=== PATIENT | female | born 1960 | race Two or more races ===

== ENCOUNTER 2025-05-23 21:40 | Inpatient (IN) | payer OTHER ==
[~2025-05-23] VITALS: Ht 165.1 cm; Wt 80.9 kg
--- NOTE | 2025-05-23 22:21 | ED.PDOC ---
HPI (NEURO) HPI Comments 65y F who presents to the ED for chief complaint of headache. Pt states she has been having on and off headaches for the past 1 week. Pt states earlier tonight, pt headache became severe and pt started to have associated shortness of breath and called EMS. EMS arrived on scene and noted very high BP prior to ED arrival. Pt in the ED, states she has history of HTN and was on medications but states after seeing functional neurologist, pt stopped taking medications and has been taking holistic medications. Pt has noted BP of 230/123 with all other vitals in normal range. Pt denies any other symptoms at this time. 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 Notes, Medications, Allergies Information Source: Patient, Emergency Med Personnel Mode of Arrival: EMS Past Medical History PAST MEDICAL HISTORY: HTN Constitutional: denies: chills, diaphoresis, fatigue, fever, malaise, sweats, weakness, others EENTM: denies: blurred vision, double vision, ear bleeding, ear discharge, ear drainage, ear pain, ear ringing, eye pain, eye redness, hearing loss, mouth pain, mouth swelling, nasal discharge, nose bleeding, nose congestion, nose pain, photophobia, tearing, throat pain, throat swelling, voice changes, others Respiratory: denies: cough, hemoptysis, orthopnea, SOB at rest, shortness of breath, SOB with excertion, stridor, wheezing, others Cardiovascular: denies: chest pain, dizzy spells, diaphoresis, Dyspnea on exertion, edema, irregular heart beat, left arm pain, lightheadedness, palpitations, PND, syncope, others Gastrointestinal: denies: abdomen distended, abdominal pain, blood streaked bowels, constipated, diarrhea, dysphagia, difficulty swallowing, hematemesis, melena, nausea, poor appetite, poor fluid intake, rectal bleeding, rectal pain, vomiting, others Genitourinary: denies: abnormal vagina bleeding, burning, dyspareunia, dysuria, flank pain, frequency, hematuria, incontinence, pain, , vagina discha rge, urgency, others Neurological: reports: headache; denies: dizziness, fainting, left sided numbness, left sided weakness, numbness, paresthesia, pre-existing deficit, right sided numbness, right sided weakness, seizure, speech problems, tingling, tremors, weakness, others Musculoskeletal: denies: back pain, gout, joint pain, joint swelling, muscle pain, muscle stiffness, neck pain, others Integumetry: denies: bruises, change in color, change in hair/nails, dryness, laceration, lesions, lumps, rash, wounds, others Allergic/Immunocompromised: denies: Difficulty Healing, Frequent Infections, Hives, Itching, others Hematologic/Lymphatic: denies: anemia, blood clots, easy bleeding, easy bruising, swollen glands, others Endocrine: denies: excessive hunger, excessive sweating, excessive thirst, excessive urination, flushing, intolerance to cold, intolerance to heat, unexplained weight gain, unexplained weight loss, others Psychiatric: denies: anxiety, bipolar disorder, depression, hopeless, panic disorder, schizophrenia, sleepless, suicidal, others All Other Systems: Reviewed and Negative Physical Exam General Appearance: No Apparent Distress, Normal HEENT: Normal ENT Inspection, Pharynx Normal, TMs Normal Neck: Full Range of Motion, Non-Tender, Normal, Normal Inspection Respiratory: Chest Non-Tender, Lungs Clear, No Accessory Muscle Use, No Respira tory Distress, Normal Breath Sounds Cardiovascular: No Edema, No JVD, No Murmur, No Gallop, Normal Peripheral Pulses, Regular Rate/Rhythm Breast Exam: Deferred Gastrointestinal: No Organomegaly, Non Tender, No Pulsatile Mass, Normal Bowel Sounds, Soft Genitalia: Deferred Pelvic: Deferred Rectal: Deferred Extremities: No calf tenderness, Normal capillary refill, Normal inspection, Normal range of motion, Non-tender, No pedal edema Musculoskeletal : Apperance: Normal Neurologic: Alert, triage specialist II-XII nml as Tested, No Motor Deficits, Normal Affect, Normal Mood, No Sensory Deficits Cerebellar Function: Normal Reflexes: Normal Skin: Dry, Normal Color, Warm Lymphatic: No Adenopathy Was a procedure done? Was a procedure done?: No Differential Diagnosis (SZ) Seizure: N/A CVA: CVA, Mass Lesion General Weakness: Dehydration, Electrolyte imbalance, Encephalopathy, TIA Headache: Migraine, Epidural Hemorrhage, Intracerebral Hemorrhage, Subarachnoid Hemorrhage, Subdural Hemorrhage, Mass Lesion, Other (HTN urgency) X-Ray, Labs, Meds, VS Vital Signs Date Time Temp Pulse Resp B/P (MAP) Pulse Ox O2 Delivery O2 Flow Rate FiO2 05/23/25 23:29 160/99 05/23/25 22:43 199/94 05/23/25 22:35 77 05/23/25 21:58 98.3 94 18 230/123 (158) 97 98.3 Lab Test 05/23/25 23:29 05/23/25 22:39 Range/Units Troponin I High Sensitivity Pending 767 *H </=34 ng/L White Blood Count 8.3 4.4-10.8 10^3/uL Red Blood Count 5.13 4.0-5.20 10^6/uL Hemoglobin 15.7 12.2-16.2 g/dL Hematocrit 44.9 36.0-46.0 % Mean Corpuscular Volume 87.6 80.0-100.0 fL Mean Corpuscular Hemoglobin 30.6 28.0-32.0 pg Mean Corpuscular Hemoglobin Concent 34.9 32.0-36.0 g/dL Red Cell Distribution Width 15.3 H 11.8-14.3 % Platelet Count 314 140-450 10^3/uL Mean Platelet Volume 9.4 6.9-10.8 fL Neutrophils (%) (Auto) 70.8 37.0-80.0 % Lymphocytes (%) (Auto) 25.6 10.0-50.0 % Monocytes (%) (Auto) 2.7 0.0-12.0 % Eosinophils (%) (Auto) 0.3 0.0-7.0 % Basophils (%) (Auto) 0.6 0.0-2.0 % Neutrophils # (Auto) 5.8 1.6-8.6 10 ^3/uL Lymphocytes # (Auto) 2.1 0.4-5.4 10 ^3/uL Monocytes # (Auto) 0.2 0-1.3 10 ^3/uL Eosinophils # (Auto) 0 0-0.8 10 ^3/uL Basophils # (Auto) 0.1 0-0.2 10 ^3/uL Nucleated Red Blood Cells 0.2 % Sodium Level 139 136-145 mmol/L Potassium Level 3.5 3.5-5.1 mmol/L Chloride Level 105 98-107 mmol/L Carbon Dioxide Level 21 20-31 mmol/L Anion Gap 13 5-15 Blood Urea Nitrogen 36 H 9-23 mg/dL Creatinine 2.30 H 0.550-1.02 mg/dL Glomerular Filtration Rate Calc 23 >90 mL/min BUN/Creatinine Ratio 15.7 10.0-20.0 Serum Glucose 135 H 74-106 mg/dL Calcium Level 9.4 8.7-10.4 mg/dL Current Medications Medications (Trade) Dose Ordered Sig/Mariella Route Start Time Stop Time Status Last Admin Clonidine HCl (Catapres Tablet) 0.1 mg ONCE ONCE PO 05/23/25 22:00 05/23/25 22:01 DC 05/23/25 22:43 Acetaminophen/ Hydrocodone Bitart ([place] 5/325MG Tab) 1 tab ONCE ONCE PO 05/23/25 22:00 05/23/25 22:01 DC 05/23/25 22:40 Ondansetron HCl (Zofran Po) 4 mg ONCE ONCE PO 05/23/25 22:45 05/23/25 22:46 DC 05/23/25 22:39 Time of 1ST Reevaluation: 23:45 Reevaluation 1ST: Improved Patient Education/Counseling: Diagnosis, Treatment, Prognosis, Need For Follow Up Family Education/Counseling: No Family Present Comments pt presented with a headache, but no chest pain. her BP is elevated but she does not check it and had no knowledge of it. she has hypertesnsive emergency with elevated troponin. her head ct is unremarkable. i will start her on labetolol drip, aspirin, heparin. she will be admitted for NSTEMI, hypertensive emergency, acute renal failure Departure 1 Departure Time of Disposition: 23:45 Impression: Primary Impression: NSTEMI (non-ST elevated myocardial infarction) Additional Impressions: Hypertensive emergency Headache Qualified Codes: R51.9 - Headache, unspecified Acute renal failure Disposition: ADMITTED INPATIENT Admit to: ICU Condition: Serious Discharged With: Self Critical Care Note Critical Care Time?: Yes (55 min-critical care time only) Critical care comment: Due to concerns for patients condition deteriorating, the care required my highest level of attention and readiness to intervene. I assessed the patient, reviewed the medical records, ordered the appropriate tests and treatments, then reassessed for results and responsiveness. I communicated with medical personnel and consultants and formulated a plan of care. Total critical care time excludes any procedures Stability Stability form required: No Heart Score Heart Score: Heart Score Response (Comments) Value History N/A 0 EKG N/A 0 Age N/A 0 Risk Factors N/A 0 Troponin N/A 0 Total 0 I personally scribed for LUIS TINSLEY MD ([facility]) on 05/23/25 at 22:21. Electronically submitted by Sanjuana Bedolla ([facility] [place]). LUIS TINSLEY MD May 23, 2025 22:21
--- NOTE | 2025-05-23 22:32 | DVH ---
CHEST RADIOGRAPH Indication: htn emergency Technique: Single frontal view of the chest was obtained Comparison: None FINDINGS: Lines and Tubes: None Lungs: No focal consolidation. Pleura: No effusion. No pneumothorax. Cardiomediastinal contours: Unremarkable Bones: No acute osseous abnormality. IMPRESSION: 1. No acute cardiopulmonary disease.
[2025-05-23] MEDS: ONDANSETRON ODT 4 MG TAB PO ONE (22:39)
[2025-05-23] MEDS: HYDROcodone-ACET 5/325MG TAB PO ONE (22:40)
--- NOTE | 2025-05-23 22:53 | ECG ---
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
[2025-05-23 22:54] LABS: Hematocrit 44.9 % (36.0-46.0); Hemoglobin 15.7 g/dL (12.2-16.2); Mean Corpuscular Hemoglobin 30.6 pg (28.0-32.0); Mean Corpuscular Volume 87.6 fL (80.0-100.0); Nucleated Red Blood Cells % 0.2 %
--- NOTE | 2025-05-23 22:55 | DVH ---
EXAM: CT HEAD WITHOUT CONTRAST INDICATION: headache TECHNIQUE: CT of the head without intravenous contrast. Radiation Dose : 1. Head: CT Dose: CTDI volume is 53.99 mGy. Dose-length product is 863.9 mGy*cm The dose indicators for CT are the volume Computed Tomography (CT) Dose Index (CTDIvol) and the Dose Length Product (DLP), and are measured in units of mGy and mGy-cm, respectively. These indicators are not patient dose, but values generated from the CT scanner acquisition factors. The report includes radiation exposure data for exposures received during this examination. COMPARISON: None FINDINGS: There is no evidence of acute intracranial hemorrhage, extra-axial collection, mass effect, midline s hift, herniation or hydrocephalus. Chronic appearing lacunar infarcts within the left thalamus and po sterior limb of the right internal capsule. The ventricles, sulci and cisterns are age appropriate. The ortiz-white differentiation is intact. Patchy periventricular and subcortical white matter hypoattenuation is nonspecific but may be related to small vessel ischemic disease. The visualized paranasal sinuses and mastoid air cells are clear. The surrounding soft tissues and osseous structures are unremarkable. IMPRESSION: 1. No acute intracranial abnormality. 2. Chronic bilateral lacunar infarcts and sequelae of microvascular disease. Radiation optimization: All CT scans at this facility use at least one of these dose optimization willian hniques: automated exposure control mA and/or kV adjustment per patient size (includes targeted exam s where dose is matched to clinical indication) or iterative reconstruction.
[2025-05-23 23:13] LABS: Chloride 105 mmol/L (98-107); Sodium 139 mmol/L (136-145)
[2025-05-23 23:14] LABS: Anion Gap 13 (5-15); Calcium 9.4 mg/dL (8.7-10.4); Carbon Dioxide 21 mmol/L (20-31)
[2025-05-23 23:15] LABS: Potassium 3.5 mmol/L (3.5-5.1)
[2025-05-23 23:19] LABS: BUN/Creatinine Ratio 15.7 (10.0-20.0)
[2025-05-23 23:20] LABS: Blood Urea Nitrogen 36 mg/dL (9-23); Glucose 135 mg/dL (74-106)
[2025-05-24 00:21] LABS: INR 1.03 (0.9-1.15); Partial Thromboplastin Time 25.7 SEC (24.5-34.5); Prothrombin Time 10.9 sec (9.3-11.8)
[2025-05-24] MEDS ORDERED: ONDANSETRON HCL 4 MG/2 ML VIAL IV PRN (01:00)
[2025-05-24] MEDS ORDERED: MORPHINE SULFATE INJ 2 MG/ml SYRG IV PRN (01:00)
[2025-05-24] MEDS: LABETALOL HCL 5 MG/ML ML 20ML VIAL IV ONE (01:00)
[2025-05-24] MEDS ORDERED: NITROGLYCERIN 0.4 MG SL TAB SL PRN (01:00)
[2025-05-24] MEDS: LABETALOL INJECTION 250 MG in SODIUM CHL 0.9% 200 ML IV ONE (01:02)
[2025-05-24] MEDS: HEPARIN SODIUM (PORCINE) 5000 UNITS/ML 1ML VIAL IV ONE ×2 (01:21→16:02)
[2025-05-24] MEDS: HEPARIN DRIP/D5W 100UNITS/ML 250 ML IV SCH ×4 (01:22→23:23)
--- NOTE | 2025-05-24 04:55 | DVHHP2 ---
History of Present Illness Reason for Visit: Headache History of Present Illness 65-year-old female presents for evaluation of a headache. Patient presents with a one-week history of intermittent episodes of headache. Patient states that today that headache was more intense and constant with associated nausea. On arrival to the emergency department patient's blood pressure was 230/123. Denies chest pain or palpitations. No other acute complaints reported. Past Medical History Hypertension Past Surgical History None Family History Noncontributory Smoke: No ALCOHOL: none Drugs: None Lives: with Family Review of Systems Review of Systems Review of systems are currently negative otherwise addressed in HPI. Allergies: Uncoded Allergies: sulfa (Allergy, Intermediate, 05/24/25) Medications Current Medications Medications Dose Ordered Sig/Mariella Route Start Time Stop Time Status Last Admin Dose Admin Heparin Sodium/ Dextrose 250 ml @ 8 mls/hr Q24H IV 05/24/25 00:00 05/24/25 01:22 8 MLS/HR Hydralazine HCl 10 mg Q6HP PRN IV 05/24/25 01:00 Aspirin 162 mg DAILY PO 05/24/25 10:00 Amlodipine Besylate 5 mg DAILY PO 05/24/25 10:00 Atorvastatin Calcium 10 mg HS PO 05/24/25 22:00 Ondansetron HCl 4 mg Q4HP PRN IV 05/24/25 01:00 Nitroglycerin 0.4 mg Q5MINP PRN SL 05/24/25 01:00 Morphine Sulfate 2 mg Q30M PRN IV 05/24/25 01:00 Exam Vital Signs Vital Signs Date Time Temp Pulse Resp B/P (MAP) Pulse Ox O2 Delivery O2 Flow Rate FiO2 05/24/25 04:15 69 22 153/84 (107) 100 05/23/25 22:41 98.0 98.0 05/23/25 22:00 Room Air* 0 21 Exam Gen: 65-year-old female in mild distress. Skin: Warm, dry, normal color and texture, no rash. HEENT: Normocephalic atraumatic, mucous membranes moist and pink. Neck: Cervical and supraclavicular nodes normal without enlargement, trachea is midline, thyroid gland is normal without masses. Pulmonary: Clear to auscultation and percussion bilaterally. Cardiac: Regular rate and rhythm. No murmur Abdomen: Soft, nontender, nondistended, bowel sounds present all 4 quadrants, no guarding, no rigidity, no organomegaly. Extremities: No cyanosis, clubbing, no edema Neuro: Cranial nerves II through XII grossly intact, normal affect and speech, no focal motor deficits. Labs/Xrays ORDERING PHYSICIAN: LUIS TINSLEY MD PROCEDURE(s): CXRP - CHEST PORTABLE REASON: htn emergency ORDER NUMBER(s): [id number], ACCESSION NUMBER(s): [id number] CHEST RADIOGRAPH Indication: htn emergency Technique: Single frontal view of the chest was obtained Comparison: None FINDINGS: Lines and Tubes: None Lungs: No focal consolidation. Pleura: No effusion. No pneumothorax. Cardiomediastinal contours: Unremarkable Bones: No acute osseous abnormality. IMPRESSION: 1. No acute cardiopulmonary disease. ATED BY: STEPHEN ARAGON Jr., DO DICTATED DATE/TIME: 05/23/252228 ORDERING PHYSICIAN: LUIS TINSLEY MD PROCEDURE(s): HWOCT - HEAD WITHOUT CONTRAST REASON: headache ORDER NUMBER(s): [id number], ACCESSION NUMBER(s): [id number] EXAM: CT HEAD WITHOUT CONTRAST INDICATION: headache TECHNIQUE: CT of the head without intravenous contrast. Radiation Dose : 1. Head: CT Dose: CTDI volume is 53.99 mGy. Dose-length product is 863.9 mGy*cm The dose indicators for CT are the volume Computed Tomography (CT) Dose Index (CTDIvol) and the Dose Length Product (DLP), and are measured in units of mGy and mGy-cm, respectively. These indicators are not patient dose, but values generated from the CT scanner acquisition factors. The report includes radiation exposure data for exposures received during this examination. COMPARISON: None FINDINGS: There is no evidence of acute intracranial hemorrhage, extra-axial collection, mass effect, midline shift, herniation or hydrocephalus. Chronic appearing lacunar infarcts within the left thalamus and posterior limb of the right internal capsule. The ventricles, sulci and cisterns are age appropriate. The ortiz-white differentiation is intact. Patchy periventricular and subcortical white matter hypoattenuation is nonspecific but may be related to small vessel ischemic disease. The visualized paranasal sinuses and mastoid air cells are clear. The surrounding soft tissues and osseous structures are unremarkable. IMPRESSION: 1. No acute intracranial abnormality. 2. Chronic bilateral lacunar infarcts and sequelae of microvascular disease. Radiation optimization: All CT scans at this facility use at least one of these dose optimization techniques: automated exposure control mA and/or kV adjustmen t per patient size (includes targeted exams where dose is matched to clinical indication) or iterative reconstruction. Labs Test 05/24/25 01:49 05/23/25 23:39 05/23/25 22:39 Range/Units Troponin I High Sensitivity 748 *H </=34 ng/L Prothrombin Time 10.9 9.3-11.8 sec Prothrombin Time INR 1.03 0.9-1.15 Activated Partial Thromboplast Time 25.7 24.5-34.5 SEC White Blood Count 8.3 4.4-10.8 10^3/uL Red Blood Count 5.13 4.0-5.20 10^6/uL Hemoglobin 15.7 12.2-16.2 g/dL Hematocrit 44.9 36.0-46.0 % Mean Corpuscular Volume 87.6 80.0-100.0 fL Mean Corpuscular Hemoglobin 30.6 28.0-32.0 pg Mean Corpuscular Hemoglobin Concent 34.9 32.0-36.0 g/dL Red Cell Distribution Width 15.3 H 11.8-14.3 % Platelet Count 314 140-450 10^3/uL Mean Platelet Volume 9.4 6.9-10.8 fL Neutrophils (%) (Auto) 70.8 37.0-80.0 % Lymphocytes (%) (Auto) 25.6 10.0-50.0 % Monocytes (%) (Auto) 2.7 0.0-12.0 % Eosinophils (%) (Auto) 0.3 0.0-7.0 % Basophils (%) (Auto) 0.6 0.0-2.0 % Neutrophils # (Auto) 5.8 1.6-8.6 10 ^3/uL Lymphocytes # (Auto) 2.1 0.4-5.4 10 ^3/uL Monocytes # (Auto) 0.2 0-1.3 10 ^3/uL Eosinophils # (Auto) 0 0-0.8 10 ^3/uL Basophils # (Auto) 0.1 0-0.2 10 ^3/uL Nucleated Red Blood Cells 0.2 % Sodium Level 139 136-145 mmol/L Potassium Level 3.5 3.5-5.1 mmol/L Chloride Level 105 98-107 mmol/L Carbon Dioxide Level 21 20-31 mmol/L Anion Gap 13 5-15 Blood Urea Nitrogen 36 H 9-23 mg/dL Creatinine 2.30 H 0.550-1.02 mg/dL Glomerular Filtration Rate Calc 23 >90 mL/min BUN/Creatinine Ratio 15.7 10.0-20.0 Serum Glucose 135 H 74-106 mg/dL Calcium Level 9.4 8.7-10.4 mg/dL Assessment/Plan Assessment/Plan Assessment NSTEMI Hypertensive emergency Acute renal failure Plan Admit the patient to ICU to the hospitalist Continue labetalol drip As needed antihypertensives Resume home medications Cardiology consult Nephrology consult Continue treatment per orders Total critical care time excluding procedures performed this 55 minutes. Plan discussed with: Patient My Orders Orders - KERI ARROYO Procedure Category Date Status Time Hydralazine Injection PHA 05/24/25 In Process (Apresoline Inject 01:00 Aspirin Tablet PHA 05/24/25 In Process 10:00 Amlodipine Tablet PHA 05/24/25 In Process (Norvasc Tablet) 10:00 Atorvastatin (Lipitor) PHA 05/24/25 In Process 22:00 * Cardiology Consult CONS 05/24/25 Transmitted 00:48 *[facility] CONS 05/24/25 Transmitted -[place] 00:48 Basic Metabolic Panel LAB 05/25/25 Verified 04:00 Admit ADMIT 05/24/25 Transmitted 00:48 Renal DIET 05/24/25 Transmitted Standard(2gna,3gk,Lopho) Breakfast Ondansetron Hcl PHA 05/24/25 In Process (Zofran) 01:00 Complete Blood Count LAB 05/25/25 Verified 04:00 Comprehensive LAB 05/25/25 Verified Metabolic Panel 04:00 Echo 2d Mode Cardiac US 05/24/25 Logged DOP 00:48 Condition: Critical JULIO 05/24/25 In Process 00:48 Bedrest With Bathroom JULIO 05/24/25 In Process Privileg 00:48 Nitroglycerin PHA 05/24/25 In Process Sublingual (Ntrostat 01:00 Morphine Sulfate PHA 05/24/25 In Process Injection 01:00 Notify Of Changes [facility] 05/24/25 In Process From Base 00:48 Fulfillment Representative For [facility] 05/24/25 In Process 24 Hours 00:48 Emergency Dysrhythmia [facility] 05/24/25 In Process Protocol 00:48 Rhythm Strips Once [facility] 05/24/25 In Process Every Shift 00:48 Oxygen By Nasal RT 05/24/25 Transmitted Cannula 00:48 Date of Service: May 23, 2025 Billing Provider: KERI ARROYO Common Visit Codes: 43880-EQFROCPT CARE 30-74 MIN KERI ARROYO May 24, 2025 04:55
--- NOTE | 2025-05-24 07:18 | ECG ---
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
[2025-05-24 07:41] VITALS: PULSE 74; RESP 16; O2SAT 99
[2025-05-24 08:02] LABS: HDL Cholesterol 56 mg/dL (40-59); INR 1.08 (0.9-1.15); Partial Thromboplastin Time 44.7 SEC (24.5-34.5); Prothrombin Time 11.4 sec (9.3-11.8)
[2025-05-24 08:06] LABS: Cholesterol 293 mg/dL (< 200); Triglycerides 165 mg/dL (< 150)
--- NOTE | 2025-05-24 08:41 | CONS ---
Pharmacy Clinical Information: HEPARIN DRIP RATE TO BE INCREASED FROM 800 UNITS/HR TO 1000 UNITS/HR PER APTT OF 44.7 (SUBTHERAPEUTIC) NEXT APTT DRAW SCHEDULED FOR 1430 PER RX PROTOCOL CONFIRMED WITH RN POOJA MOODY PHARMACIST May 24, 2025 08:41
[2025-05-24 08:49] LABS: Chloride 106 mmol/L (98-107); Potassium 3.7 mmol/L (3.5-5.1); Sodium 140 mmol/L (136-145)
[2025-05-24 08:50] LABS: Anion Gap 13 (5-15); Carbon Dioxide 21 mmol/L (20-31)
[2025-05-24 08:51] LABS: Calcium 9.0 mg/dL (8.7-10.4)
[2025-05-24 08:56] LABS: BUN/Creatinine Ratio 15.9 (10.0-20.0); Blood Urea Nitrogen 36 mg/dL (9-23); Glucose 133 mg/dL (74-106)
--- NOTE | 2025-05-24 10:05 | DVHCONRES ---
Date Seen: May 24, 2025 Resident Creating Document: TG CARVER RESIDENT Referring Physician Rodo OLIVER History of Present Illness This is a 65-year-old female with past medical history of hypertension, gout who presented to the ER with a chief complaint of generalized weakness, shortness of breaths and headache for a day. Patient is A&O x3 and reports that her blood pressure was high and she was feeling generalized fatigue, malaise, shortness of breaths on exertion and on rest and severe headache for which she decided to come into the ER. Patient does not take any medications at home. She follows integrated Medicine and takes chlorine dioxide DMSO 1-2 times daily for blood pressure control. She eats diet rich in red meat including rib eyes, but denies eating any vegetables especially with oxalates. Associated symptoms include chills, nausea, diarrhea for 1 day, 3 times, nonbloody, reports increasing urine output, but denies cough, chest pain, fever. Patient stays that she does not believe in Western medicine in his done research and does not want any statin/Coreg/or any vaccines. Says that last blood draw was more than 2 years back. Patient seen and examined in the ER. Blood pressure is 150/80 mmHg. Started nifedipine 60 mg daily. Past Medical History Hypertension, gout Past Surgical History Unremarkable Allergies: Uncoded Allergies: sulfa (Allergy, Intermediate, 05/24/25) Current Medications Current Medications Medications (Trade) Dose Ordered Sig/Mariella Route PRN Reason Start Time Stop Time Status Last Admin Heparin Sodium/ Dextrose 250 ml @ 8 mls/hr Q24H IV 05/24/25 00:00 05/24/25 08:37 DC 05/24/25 01:22 Hydralazine HCl (Apresoline Injection) 10 mg Q6HP PRN IV SBP>150 05/24/25 01:00 Aspirin 162 mg DAILY PO 05/24/25 10:00 Amlodipine Besylate (Norvasc Tablet) 5 mg DAILY PO 05/24/25 10:00 05/24/25 04:53 DC Atorvastatin Calcium (Lipitor) 10 mg HS PO 05/24/25 22:00 Ondansetron HCl (Zofran) 4 mg Q4HP PRN IV NAUSEA / VOMITING 05/24/25 01:00 Nitroglycerin (Ntrostat Sublingual) 0.4 mg Q5MINP PRN SL FOR CHEST PAIN 05/24/25 01:00 Morphine Sulfate 2 mg Q30M PRN IV FOR CHEST PAIN 05/24/25 01:00 Amlodipine Besylate (Norvasc Tablet) 10 mg DAILY PO 05/24/25 05:00 05/24/25 05:16 Heparin Sodium/ Dextrose 250 ml @ 10 mls/hr Q24H IV 05/24/25 08:38 05/24/25 08:38 Review of Systems Eyes: No Pain, No Vision change, No Conjunctivae inflammation, No Eyelid inflammation, No Other, No Redness. Reports headache ENT: No Ear pain, No Ear discharge, No Nose pain, No Nose discharge, No Nose congestion, No Mouth pain, No Mouth swelling, No Throat pain, No Throat swelling, No Other Cardiovascular: No Chest Pain, No Palpitations, No Orthopnea, No PND, No Edema, No Lt Headedness, No Other Respiratory: No Cough, No Dry, No Shortness of breath, No SOB with exertion, No Wheezing, No Hemoptysis, No Pleuritic Pain, No Sputum, No Other Gastrointestinal: Reports nausea, diarrhea. No Vomiting, No Abdominal Pain, Constipation, No Melena, No Hematochezia, No Other Genitourinary: Reports urinary frequency No Dysuria, No Incontinence, No Hematuria, No Retention, No Other Musculoskeletal: No other, No neck pain, No shoulder pain, No arm pain, No back pain, No hand pain, No leg pain, No foot pain Skin: No Rash, No Lesions, No Jaundice, No Bruising, No Other Vital Signs Vital Signs Date Time Temp Pulse Resp B/P (MAP) Pulse Ox O2 Delivery O2 Flow Rate FiO2 05/24/25 09:15 76 16 109/85 (93) 99 05/24/25 08:00 97.8 97.8 05/24/25 07:41 Nasal Cannula* 2 28 Physical Exam Patient lying in bed, in no acute distress, reports chills General: Well-built, afebrile, palor, mucosae are moist Cardiovascular: Regular S1 and S2. No murmurs, gallops or rubs. No JVD elevation. No pedal edema Respiratory: Normal B/L air entry on room air. Clear lung sounds on auscultation Abdomen: Soft, nontender, nondistended, normoactive bowel sounds, no rebound tenderness, no organomegaly, no masses Genitourinary: Deferred MSK/skin: Mobilizes 4 limbs. Skin is dry and warm Neurological: No motor, no sensitive deficits, normal speech. Pupils are isocoric and reactive. Psych/Mental Status: A/Ox3 Labs/Diagnostic Data Labs Test 05/24/25 07:29 05/24/25 01:49 05/23/25 22:39 Range/Units Prothrombin Time 11.4 9.3-11.8 sec Prothrombin Time INR 1.08 0.9-1.15 Activated Partial Thromboplast Time 44.7 H 24.5-34.5 SEC Sodium Level 140 136-145 mmol/L Potassium Level 3.7 3.5-5.1 mmol/L Chloride Level 106 98-107 mmol/L Carbon Dioxide Level 21 20-31 mmol/L Anion Gap 13 5-15 Blood Urea Nitrogen 36 H 9-23 mg/dL Creatinine 2.27 H 0.550-1.02 mg/dL Glomerular Filtration Rate Calc 24 >90 mL/min BUN/Creatinine Ratio 15.9 10.0-20.0 Serum Glucose 133 H 74-106 mg/dL Calcium Level 9.0 8.7-10.4 mg/dL Triglycerides Level 165 H < 150 mg/dL Cholesterol Level 293 H < 200 mg/dL LDL Cholesterol 221 H < 100 mg/dL HDL Cholesterol 56 40-59 mg/dL Thyroid Stimulating Hormone (TSH) 1.63 0.55-4.78 uIU/mL Troponin I High Sensitivity 748 *H </=34 ng/L White Blood Count 8.3 4.4-10.8 10^3/uL Red Blood Count 5.13 4.0-5.20 10^6/uL Hemoglobin 15.7 12.2-16.2 g/dL Hematocrit 44.9 36.0-46.0 % Mean Corpuscular Volume 87.6 80.0-100.0 fL Mean Corpuscular Hemoglobin 30.6 28.0-32.0 pg Mean Corpuscular Hemoglobin Concent 34.9 32.0-36.0 g/dL Red Cell Distribution Width 15.3 H 11.8-14.3 % Platelet Count 314 140-450 10^3/uL Mean Platelet Volume 9.4 6.9-10.8 fL Neutrophils (%) (Auto) 70.8 37.0-80.0 % Lymphocytes (%) (Auto) 25.6 10.0-50.0 % Monocytes (%) (Auto) 2.7 0.0-12.0 % Eosinophils (%) (Auto) 0.3 0.0-7.0 % Basophils (%) (Auto) 0.6 0.0-2.0 % Neutrophils # (Auto) 5.8 1.6-8.6 10 ^3/uL Lymphocytes # (Auto) 2.1 0.4-5.4 10 ^3/uL Monocytes # (Auto) 0.2 0-1.3 10 ^3/uL Eosinophils # (Auto) 0 0-0.8 10 ^3/uL Basophils # (Auto) 0.1 0-0.2 10 ^3/uL Nucleated Red Blood Cells 0.2 % Assessment Acute kidney injury secondary to hypertensive nephropathy likely superimposed on CKD Hypertensive nephrosclerosis Hypertensive crisis NSTEMI Dyslipidemia Prior bilateral lacunar infarcts History of gout Medication noncompliance CT scan head shows chronic bilateral lacunar infarct Chest x-ray unremarkable Renal ultrasound showed Echogenic bilateral kidneys suggestive of chronic medical renal disease. Suggestion of possible mild right hydronephrosis. Plan: Discontinued labetalol IV drip Patient is on heparin drip Started nifedipine 60 mg daily Follow up with the echocardiogram Recommend cardiology consultation Patient counseled extensively regarding the need of antihypertensive medications, side effects, risks and benefits We will continue to follow up Plan discussed with patient, nurse in which all questions have been answered Case discussed with Dr. Russell Plan discussed with: Patient, Other (nurse) ADDENDUM ADDENDUM Patient is seen and examined in the ER with resident at bedside. Brief summary 65-year-old female past medical history of hypertension who practices alternative medicine has not been taking any pharmaceutical medications for high blood pressure presents to the hospital complaining of headache was admitted in the ER due to hypertensive emergency. Patient was started on a drip overnight for blood pressure control and was noted to have elevated troponins currently on heparin drip concern of non ST elevated myocardial infarction. After extensive discussion with the patient there is unclear background of previous lab results confirming elevated creatinine. However lab tests support chronic disease, patient also has chronic lacunar infarcts on CT of the head which are likely related to chronic hypertension that is not optimally controlled. Ultrasound of the kidney shows echogenic kidneys which is typical for a chronic disease process and she is not diabetic. I recommend strongly encouraged patient to start oral pharmaceutical antihypertensives, currently she is receiving an echocardiogram and cardiac evaluation Recommend obtaining outpatient records for baseline kidney function however I suspect that patient has chronic kidney disease Total care time spent 75 minutes TG CARVER May 24, 2025 10:05 ALESIA RUSSELL MD May 24, 2025 16:37
--- NOTE | 2025-05-24 11:18 | DVH ---
INDICATION: akji vs ckd TECHNIQUE: Multiple real-time sonographic images of the kidneys and bladder were obtained. COMPARISON: None FINDINGS: The right kidney measures 12 cm in length, which is normal in size. There is increased echo genicity of the right kidney. Suggestive of possible mild right hydronephrosis. The left kidney measures 12 cm in length, which is normal in size. There is increased echogenicity of the left kidney. No hydronephrosis. No large intraluminal masses are seen in the bladder. Prior to voiding the bladder volume measures vo lume 15 cc. IMPRESSION: Echogenic bilateral kidneys suggestive of chronic medical renal disease. Suggestion of possible mild right hydronephrosis.
[2025-05-24 15:10] LABS: INR 1.07 (0.9-1.15); Partial Thromboplastin Time 34.4 SEC (24.5-34.5); Prothrombin Time 11.3 sec (9.3-11.8)
[2025-05-24] MEDS ORDERED: HEPARIN DRIP/D5W 100UNITS/ML 250 ML IV SCH (15:55)
--- NOTE | 2025-05-24 15:55 | CONS ---
Pharmacy Clinical Information: APTT = 34.4 CONFIRMED WITH ALE ORTIZ THAT HEPARIN WAS RUNNING AT 1000 UNITS/HR ON A PRIMARY LINE. BOLUS 5000 UNITS HEPARIN IV, THEN INCREASE HEPARIN DRIP RATE TO 1300 UNITS/HR NEXT APTT DRAW SCHEDULED FOR 2200 PER RX PROTOCOL POOJA DENTON PHARMACIST May 24, 2025 15:55
--- NOTE | 2025-05-24 15:57 | DVHPN2 ---
Subjective Headaches have improved Reviewed: H&P, Labs Changes from previous H/P or p: No Changes Objective Vitals Vital Signs Date Time Temp Pulse Resp B/P (MAP) Pulse Ox O2 Delivery O2 Flow Rate FiO2 05/24/25 14:35 142/65 05/24/25 12:47 83 05/24/25 12:30 12 99 05/24/25 12:00 98.2 98.2 05/24/25 07:41 Nasal Cannula* 2 28 General Appearance: Alert, Oriented X3 HEENT: Atraumatic Lungs: Clear to auscultation Cardiovascular: Regular rate, Normal S1, Normal S2 Abdomen: Normal bowel sounds Medications Current Medications Medications Dose Ordered Sig/Mariella Route Start Time Stop Time Status Last Admin Dose Admin Hydralazine HCl 10 mg Q6HP PRN IV 05/24/25 01:00 Aspirin 162 mg DAILY PO 05/24/25 10:00 05/24/25 10:13 162 MG Atorvastatin Calcium 10 mg HS PO 05/24/25 22:00 Ondansetron HCl 4 mg Q4HP PRN IV 05/24/25 01:00 Nitroglycerin 0.4 mg Q5MINP PRN SL 05/24/25 01:00 Morphine Sulfate 2 mg Q30M PRN IV 05/24/25 01:00 Amlodipine Besylate 10 mg DAILY PO 05/24/25 05:00 05/24/25 05:16 10 MG Acetaminophen 650 mg Q6HP PRN PO 05/24/25 12:30 Nifedipine 60 mg DAILY PO 05/25/25 10:00 Heparin Sodium/ Dextrose 250 ml @ 13 mls/hr [id number] IV 05/24/25 16:00 Laboratory Results Laboratory Tests 05/23/25 22:39 05/24/25 07:29 Chemistry Test 05/23/25 22:39 05/24/25 07:29 Calcium Level 9.4 mg/dL (8.7-10.4) 9.0 mg/dL (8.7-10.4) Magnesium Level 2.5 mg/dL (1.6-2.6) Coagulation Test 05/23/25 23:39 05/24/25 07:29 05/24/25 14:25 Prothrombin Time 10.9 sec (9.3-11.8) 11.4 sec (9.3-11.8) 11.3 sec (9.3-11.8) Prothrombin Time INR 1.03 (0.9-1.15) 1.08 (0.9-1.15) 1.07 (0.9-1.15) Activated Partial Thromboplast Time 25.7 SEC (24.5-34.5) 44.7 SEC (24.5-34.5) H 34.4 SEC (24.5-34.5) Lipid panel Test 05/24/25 07:29 Cholesterol Level 293 mg/dL (< 200) H HDL Cholesterol 56 mg/dL (40-59) Triglycerides Level 165 mg/dL (< 150) H Cardiac Markers Test 05/24/25 07:29 B-Type Natriuretic Peptide 43.80 pg/mL (0-100) HgA1c, TSH Test 05/24/25 07:29 Hemoglobin A1c 5.7 % A1C (<5.7) Thyroid Stimulating Hormone (TSH) 1.63 uIU/mL (0.55-4.78) Assessment/Plan Assessment/Plan NSTEMI Hypertensive emergency Acute renal failure Plan Wean off labetalol Start nifedipine IV heparin drip Echo pending Cardiology consulted Renal US Plan discussed with: Patient My Orders Orders - OLIVE CHANG MD Procedure Category Date Status Time Transfer Orders XFER 05/24/25 Transmitted 12:22 Acetaminophen Tablet PHA 05/24/25 In Process (Tylenol Tablet) 12:30 Date of Service: May 24, 2025 Billing Provider: OILVE CHANG MD Common Visit Codes: [id number] INP/OBS CARE(HIGH) OLIVE CHANG MD May 24, 2025 15:57
--- NOTE | 2025-05-24 16:38 | DVHSR ---
APPROVED REPORT EXAM: Two-dimensional and M-mode echocardiogram with Doppler and color Doppler. Blood Pressure: 120/56 mmHg INDICATION EF RISK FACTORS Height: 5'5", Weight: 150 DIMENSIONS LVDd4.7 (3.8-5.7cm)LA (2D)4.5 (1.9-4.0cm)Aortic Root3.4 (2.0-3.7cm) LVDs3.5 (2.5-4.0cm)LA (MM) (1.9-4.0cm)Aortic Cusp Exc1.8 (1.5-2.0cm) EF (%) 55.0 (55-70%)Rt. Atrium3.5 (1.9-4.0cm)Asc. Aorta cm IVSd1.4 (0.7-1.1cm)RV (D) (1.8-2.4cm) PWd1.4 (0.7-1.1cm) Mitral Valve MitralMitral Stenosis E wave0.53m/sMV Mean GR.mmHg A wave1.01m/sMV Peak GR.mmHg E/A ratio0.52D MVAcm2 DECEL [id number] 1/2 Timems Aortic Valve Aortic ValveAortic Stenosis V10.89m/Ashley Mean GR.9mmHg V21.95m/Ashley Peak GR.15mmHg LVOT Diameter2.0 (1.8-2.4cm)Doppler AVA1.43cm2 Pulmonic Valve V21.18m/s Conclusion lvef 55% by visual estimate mild LVH normal rv function normal atria no severe valve abnormalities noted
[2025-05-24 17:00] VITALS: BP 167/77; PULSE 71; RESP 18; TEMP 97.6; O2SAT 98
[2025-05-24 17:03] VITALS: BP 167/77; PULSE 71; RESP 18; TEMP 97.6; O2SAT 98
--- NOTE | 2025-05-24 19:44 | DVHCONRES ---
Date Seen: May 24, 2025 Resident Creating Document: GRIFFIN ADAMS RESDIENT History of Present Illness This is a 65-year-old female with past medical history of hypertension, dyslipidemia and gout came to the hospital due to headache and generalized weakness since 1 day. She also reports of fatigue, malaise, and mild shortness of breaths. She denies fever, chest pain, cough, or any recent sick contact. Patient was previously followed by a operations and intelligence assistant ([facility]), with the patient does not believe on medication and has been following integrated Medicine. PMHx: Hypertension and gout Social history: Denies smoking, alcohol or any other drug use Home medication: Previously patient was prescribed medication for blood patient and dyslipidemia, but the patient does not take any medicine Allergic history: Sulfa drugs Patient seen and examined at the bedside. Patient is feeling better since admission and does not have any active complaint. Family History: Alcoholism Diabetes mellitus G8 FATHER Glaucoma G8 MOTHER Allergies: Uncoded Allergies: sulfa (Allergy, Intermediate, 05/24/25) Current Medications Current Medications Medications (Trade) Dose Ordered Sig/Mariella Route PRN Reason Start Time Stop Time Status Last Admin Heparin Sodium/ Dextrose 250 ml @ 8 mls/hr Q24H IV 05/24/25 00:00 05/24/25 08:37 DC 05/24/25 01:22 Hydralazine HCl (Apresoline Injection) 10 mg Q6HP PRN IV SBP>150 05/24/25 01:00 Aspirin 162 mg DAILY PO 05/24/25 10:00 05/24/25 10:13 Amlodipine Besylate (Norvasc Tablet) 5 mg DAILY PO 05/24/25 10:00 05/24/25 04:53 DC Atorvastatin Calcium (Lipitor) 10 mg HS PO 05/24/25 22:00 Ondansetron HCl (Zofran) 4 mg Q4HP PRN IV NAUSEA / VOMITING 05/24/25 01:00 Nitroglycerin (Ntrostat Sublingual) 0.4 mg Q5MINP PRN SL FOR CHEST PAIN 05/24/25 01:00 Morphine Sulfate 2 mg Q30M PRN IV FOR CHEST PAIN 05/24/25 01:00 Amlodipine Besylate (Norvasc Tablet) 10 mg DAILY PO 05/24/25 05:00 05/24/25 05:16 Heparin Sodium/ Dextrose 250 ml @ 10 mls/hr Q24H IV 05/24/25 08:38 05/24/25 15:49 DC 05/24/25 08:38 Acetaminophen (Tylenol Tablet) 650 mg Q6HP PRN PO MODERATE PAIN (4-6 PAIN SCALE) 05/24/25 12:30 Nifedipine (Procardia Xl (Time-Release)) 60 mg DAILY PO 05/25/25 10:00 Heparin Sodium/ Dextrose 250 ml @ 12 mls/hr [id number] IV 05/24/25 15:55 05/24/25 15:53 DC Heparin Sodium/ Dextrose 250 ml @ 13 mls/hr [id number] IV 05/24/25 16:00 05/24/25 16:05 Vital Signs Vital Signs Date Time Temp Pulse Resp B/P (MAP) Pulse Ox O2 Delivery O2 Flow Rate FiO2 05/24/25 17:03 97.6 71 18 167/77 (107) 98 97.6 05/24/25 17:03 Nasal Cannula* 2 28 Physical Exam General Appearance: Alert, Oriented X3, Cooperative, No acute distress HEENT: Atraumatic, PERRLA, EOMI, Mucous membrane moist/pink Respiratory: Clear to auscultation, Normal air movement Cardiovascular: Regular rate, Normal S1, Normal S2, No murmurs, no chest wall tenderness Abdominal: Normal bowel sounds, Soft, No tenderness, No hepatospenomegaly, No masses Extremities: No clubbing, No cyanosis, No edema, Normal pulses, No tenderness/swelling Skin: No rashes, No breakdown, No significant lesion Neuro: Normal gait, Normal speech, Strength at 5/5 X4 ext, Normal tone, Sensation intact, Cranial nerves 3-12 NL, Reflexes 2+ Psych/Mental Status: Mental status NL, Mood NL Labs/Diagnostic Data Labs Test 05/24/25 14:25 05/24/25 11:05 05/24/25 07:29 05/24/25 01:49 Range/Units Prothrombin Time 11.3 9.3-11.8 sec Prothrombin Time INR 1.07 0.9-1.15 Activated Partial Thromboplast Time 34.4 24.5-34.5 SEC Vitamin D 25-Hydroxy 29.2 L 30.0-100 ng/mL Vitamin B12 Level 512 211-911 pg/mL Sodium Level 140 136-145 mmol/L Potassium Level 3.7 3.5-5.1 mmol/L Chloride Level 106 98-107 mmol/L Carbon Dioxide Level 21 20-31 mmol/L Anion Gap 13 5-15 Blood Urea Nitrogen 36 H 9-23 mg/dL Creatinine 2.27 H 0.550-1.02 mg/dL Glomerular Filtration Rate Calc 24 >90 mL/min BUN/Creatinine Ratio 15.9 10.0-20.0 Serum Glucose 133 H 74-106 mg/dL Hemoglobin A1c 5.7 <5.7 % A1C Calcium Level 9.0 8.7-10.4 mg/dL Magnesium Level 2.5 1.6-2.6 mg/dL B-Type Natriuretic Peptide 43.80 0-100 pg/mL Triglycerides Level 165 H < 150 mg/dL Cholesterol Level 293 H < 200 mg/dL LDL Cholesterol 221 H < 100 mg/dL HDL Cholesterol 56 40-59 mg/dL Thyroid Stimulating Hormone (TSH) 1.63 0.55-4.78 uIU/mL Parathyroid Hormone (Intact) 225.9 H 18.4-80.1 pg/mL Troponin I High Sensitivity 748 *H </=34 ng/L Test 05/23/25 22:39 Range/Units White Blood Count 8.3 4.4-10.8 10^3/uL Red Blood Count 5.13 4.0-5.20 10^6/uL Hemoglobin 15.7 12.2-16.2 g/dL Hematocrit 44.9 36.0-46.0 % Mean Corpuscular Volume 87.6 80.0-100.0 fL Mean Corpuscular Hemoglobin 30.6 28.0-32.0 pg Mean Corpuscular Hemoglobin Concent 34.9 32.0-36.0 g/dL Red Cell Distribution Width 15.3 H 11.8-14.3 % Platelet Count 314 140-450 10^3/uL Mean Platelet Volume 9.4 6.9-10.8 fL Neutrophils (%) (Auto) 70.8 37.0-80.0 % Lymphocytes (%) (Auto) 25.6 10.0-50.0 % Monocytes (%) (Auto) 2.7 0.0-12.0 % Eosinophils (%) (Auto) 0.3 0.0-7.0 % Basophils (%) (Auto) 0.6 0.0-2.0 % Neutrophils # (Auto) 5.8 1.6-8.6 10 ^3/uL Lymphocytes # (Auto) 2.1 0.4-5.4 10 ^3/uL Monocytes # (Auto) 0.2 0-1.3 10 ^3/uL Eosinophils # (Auto) 0 0-0.8 10 ^3/uL Basophils # (Auto) 0.1 0-0.2 10 ^3/uL Nucleated Red Blood Cells 0.2 % Assessment Hypertensive emergency leading to NSTEMI NSTEMI, likely type 2 [place], likely on CKD Hypertension Dyslipidemia Medication non adherence * EKGs shows LVH with strain pattern * Trop I is raised at 700s, stable * Echo shows mild LVH with LVEF 55% with normal valves Plan/Recommendation (Case discussed with Dr. Delgado) * Single antiplatelet (Aspirin), atorvastatin, nifedipine and carvedilol * Discontinue heparin drip * In context of normal EKG, and echo, patient does not need any further cardiology workup at the moment * Keep K above 4, and Mag above 2 * We sign of the patient, may follow up with Cardiology on outpatient basis * Rest of plan, per primary team Thank you for allowing us to participate in this patient's care. Please call if you have any questions or concerns. Plan discussed with: Patient, Other (RN) GRIFFIN ADAMS May 24, 2025 19:44
[2025-05-24 20:00] VITALS: PULSE 61; PULSE 89; RESP 12; O2SAT 95
[2025-05-24] MEDS: CARVEDILOL 12.5 MG TAB PO ONE (20:49)
[2025-05-24] MEDS: ATORVASTATIN 20 MG TAB PO SCH (20:49)
[2025-05-24 21:00] VITALS: BP 147/67; PULSE 61; RESP 12; TEMP 97.1; O2SAT 95
[2025-05-24] MEDS ORDERED: ATORVASTATIN 20 MG TAB PO SCH (22:00)
[2025-05-24 22:52] LABS: INR 1.09 (0.9-1.15); Prothrombin Time 11.5 sec (9.3-11.8)
[2025-05-24 23:08] LABS: Partial Thromboplastin Time 89.7 SEC (24.5-34.5)
[2025-05-24 23:56] LABS: Urine Protein, UAD 2+ (Negative)
[2025-05-25] VITALS (10 sets, daily range): BP systolic 128–156; BP diastolic 58–79; PULSE 63–86; RESP 16–20; TEMP 97.1–98.4; O2SAT 93–98
[2025-05-25 07:46] LABS: Hematocrit 38.6 % (36.0-46.0); Hemoglobin 13.5 g/dL (12.2-16.2); Mean Corpuscular Hemoglobin 30.6 pg (28.0-32.0); Mean Corpuscular Volume 87.8 fL (80.0-100.0); Nucleated Red Blood Cells % 0.0 %
[2025-05-25 07:58] LABS: Alanine Aminotransferase 10 U/L (7-40); Albumin 4.0 g/dL (3.2-4.8); Alkaline Phosphatase 57 U/L (46-116); Anion Gap 11 (5-15); BUN/Creatinine Ratio 17.1 (10.0-20.0); Calcium 9.7 mg/dL (8.7-10.4); Carbon Dioxide 24 mmol/L (20-31); Potassium 3.7 mmol/L (3.5-5.1); Sodium 143 mmol/L (136-145); Total Protein 6.6 g/dL (5.7-8.2)
[2025-05-25 07:59] LABS: Bilirubin, Total 0.2 mg/dL (0.2-1.0); Blood Urea Nitrogen 43 mg/dL (9-23); Chloride 108 mmol/L (98-107); Glucose 119 mg/dL (74-106)
[2025-05-25 08:16] LABS: INR 1.11 (0.9-1.15); Prothrombin Time 11.6 sec (9.3-11.8)
[2025-05-25 08:34] LABS: Partial Thromboplastin Time 133.1 SEC (24.5-34.5)
--- NOTE | 2025-05-25 08:58 | CONS ---
Pharmacy Clinical Information: HEPARIN DRIP HELD FOR 1 HOUR, WILL THEN RESUME AT RATE 800 UNITS/HR PER APTT OF 133.1 (SUPRATHERAPEUTIC) NEXT APTT DRAW SCHEDULED FOR 1600 PER RX PROTOCOL POOJA DENTON PHARMACIST May 25, 2025 08:58
[2025-05-25] MEDS: CARVEDILOL 12.5 MG TAB PO SCH (10:34)
[2025-05-25] MEDS: HEPARIN DRIP/D5W 100UNITS/ML 250 ML IV SCH ×2 (10:43→23:24)
--- NOTE | 2025-05-25 11:49 | DVHPNRES ---
Progress Note Date Seen: May 25, 2025 Resident Creating Document: TG CARVER RESIDENT Medical Necessity Reason Pt with a Central, PICC or Fol: No Subjective Review of Systems This is a 65-year-old female with past medical history of hypertension, gout who presented to the ER with a chief complaint of generalized weakness, shortness of breaths and headache for a day. Patient is A&O x3 and reports that her blood pressure was high and she was feeling generalized fatigue, malaise, shortness of breaths on exertion and on rest and severe headache for which she decided to come into the ER. Patient does not take any medications at home. She follows integrated Medicine and takes chlorine dioxide DMSO 1-2 times daily for blood pressure control. She eats diet rich in red meat including rib eyes, but denies eating any vegetables especially with oxalates. Associated symptoms include chills, nausea, diarrhea for 1 day, 3 times, nonbloody, reports increasing urine output, but denies cough, chest pain, fever. Patient stays that she does not believe in Western medicine in his done research and does not want any statin/Coreg/or any vaccines. Says that last blood draw was more than 2 years back. 05/24 Patient seen and examined in the ER. Blood pressure is 150/80 mmHg. Started nifedipine 60 mg daily. 05/25-patient seen and examined, no acute complaint. cardiology started Coreg b.i.d. and atorvastatin. Heparin drip was discontinued. Blood pressure is adequately controlled. Objective vital signs Vital Sign Date Time Temp Pulse Resp B/P (MAP) Pulse Ox O2 Delivery O2 Flow Rate FiO2 05/25/25 10:34 72 132/67 05/25/25 09:00 97.6 18 97 97.6 05/25/25 07:42 Nasal Cannula* 2 28 Total Intake and Output 05/24/25 05/24/25 05/25/25 15:00 23:00 07:00 Intake Total 0 ml 800 ml Balance 0 ml 800 ml medications Current Medications Medications Dose Ordered Sig/Mariella Route Start Time Stop Time Status Last Admin Dose Admin Hydralazine HCl 10 mg Q6HP PRN IV 05/24/25 01:00 Aspirin 162 mg DAILY PO 05/24/25 10:00 05/25/25 10:33 162 MG Ondansetron HCl 4 mg Q4HP PRN IV 05/24/25 01:00 Nitroglycerin 0.4 mg Q5MINP PRN SL 05/24/25 01:00 Morphine Sulfate 2 mg Q30M PRN IV 05/24/25 01:00 Acetaminophen 650 mg Q6HP PRN PO 05/24/25 12:30 Nifedipine 60 mg DAILY PO 05/25/25 10:00 05/25/25 10:29 60 MG Atorvastatin Calcium 40 mg HS PO 05/24/25 19:45 05/24/25 20:49 40 MG Carvedilol 12.5 mg Q12HR PO 05/25/25 10:00 05/25/25 10:34 12.5 MG Heparin Sodium/ Dextrose 250 ml @ 8 mls/hr Q24H IV 05/25/25 10:00 05/25/25 10:43 8 MLS/HR Examination Patient lying in bed, in no acute distress, reports chills General: Well-built, afebrile, palor, mucosae are moist Cardiovascular: Regular S1 and S2. No murmurs, gallops or rubs. No JVD elevation. No pedal edema Respiratory: Normal B/L air entry on room air. Clear lung sounds on auscultation Abdomen: Soft, nontender, nondistended, normoactive bowel sounds, no rebound tenderness, no organomegaly, no masses Genitourinary: Deferred MSK/skin: Mobilizes 4 limbs. Skin is dry and warm Neurological: No motor, no sensitive deficits, normal speech. Pupils are isocoric and reactive. Psych/Mental Status: A/Ox3 laboratory and microbiology Laboratory Tests 05/25/25 07:16 Test 05/25/25 07:16 Range/Units Serum Glucose 119 H 74-106 mg/dL Labs and/or images reviewed: Labs reviewed by me, Image(s) reviewed by me Problem List/Assessment/Plan Problem List/Assessment/Plan Acute kidney injury secondary to hypertensive nephropathy likely superimposed on CKD Hypertensive nephrosclerosis Hypertensive crisis NSTEMI Dyslipidemia Prior bilateral lacunar infarcts History of gout Medication noncompliance Vitamin-D deficiency Secondary hyperparathyroidism CT scan head shows chronic bilateral lacunar infarct Chest x-ray unremarkable Renal ultrasound showed Echogenic bilateral kidneys suggestive of chronic medical renal disease. Suggestion of possible mild right hydronephrosis. Plan: Continue nifedipine 60 mg daily, continue Coreg 12.5 mg b.i.d. Continue atorvastatin 40 mg Discontinued labetalol IV drip Patient is on heparin drip Echocardiogram unremarkable Recommend cardiology consultation Patient counseled extensively regarding the need of antihypertensive medications, side effects, risks and benefits We will continue to follow up Plan discussed with patient, nurse in which all questions have been answered Case discussed with Dr. Romero Plan discussed with: Patient My Orders My Orders Orders - TG CARVER Procedure Category Date Status Time Nifedipine Er PHA 05/25/25 In Process (Procardia Xl 10:00 TG CARVER May 25, 2025 11:49
[2025-05-25 16:45] LABS: INR 1.08 (0.9-1.15); Partial Thromboplastin Time 50.1 SEC (24.5-34.5); Prothrombin Time 11.4 sec (9.3-11.8)
--- NOTE | 2025-05-25 20:01 | DVHPN2 ---
Subjective no headaches today Reviewed: H&P, Labs Changes from previous H/P or p: No Changes Objective Vitals Vital Signs Date Time Temp Pulse Resp B/P (MAP) Pulse Ox O2 Delivery O2 Flow Rate FiO2 05/25/25 16:32 97.6 72 17 128/72 (90) 94 97.6 05/25/25 07:42 Nasal Cannula* 2 28 Intake/Output Intake and Output 05/25/25 06:59 Intake Total 800 ml Balance 800 ml Intake Oral 800 ml # Voids 6 General Appearance: Alert, Oriented X3 HEENT: Atraumatic Lungs: Clear to auscultation Cardiovascular: Regular rate, Normal S1, Normal S2 Abdomen: Normal bowel sounds Medications Current Medications Medications Dose Ordered Sig/Mariella Route Start Time Stop Time Status Last Admin Dose Admin Hydralazine HCl 10 mg Q6HP PRN IV 05/24/25 01:00 Aspirin 162 mg DAILY PO 05/24/25 10:00 05/25/25 10:33 162 MG Ondansetron HCl 4 mg Q4HP PRN IV 05/24/25 01:00 Nitroglycerin 0.4 mg Q5MINP PRN SL 05/24/25 01:00 Morphine Sulfate 2 mg Q30M PRN IV 05/24/25 01:00 Acetaminophen 650 mg Q6HP PRN PO 05/24/25 12:30 Nifedipine 60 mg DAILY PO 05/25/25 10:00 05/25/25 10:29 60 MG Atorvastatin Calcium 40 mg HS PO 05/24/25 19:45 05/24/25 20:49 40 MG Carvedilol 12.5 mg Q12HR PO 05/25/25 10:00 05/25/25 10:34 12.5 MG Heparin Sodium/ Dextrose 250 ml @ 8 mls/hr Q24H IV 05/25/25 10:00 05/25/25 10:43 8 MLS/HR Laboratory Results Laboratory Tests 05/25/25 07:16 Chemistry Test 05/25/25 07:16 Albumin 4.0 g/dL (3.2-4.8) Calcium Level 9.7 mg/dL (8.7-10.4) Total Protein 6.6 g/dL (5.7-8.2) Coagulation Test 05/24/25 21:50 05/25/25 07:16 05/25/25 16:19 Prothrombin Time 11.5 sec (9.3-11.8) 11.6 sec (9.3-11.8) 11.4 sec (9.3-11.8) Prothrombin Time INR 1.09 (0.9-1.15) 1.11 (0.9-1.15) 1.08 (0.9-1.15) Activated Partial Thromboplast Time 89.7 SEC (24.5-34.5) *H 133.1 SEC (24.5-34.5) *H 50.1 SEC (24.5-34.5) H LFT Test 05/25/25 07:16 Alanine Aminotransferase (ALT) 10 U/L (7-40) Alkaline Phosphatase 57 U/L (46-116) Aspartate Amino Transferase (AST) 13 U/L (13-40) Total Bilirubin 0.2 mg/dL (0.2-1.0) Urinalysis Test 05/24/25 21:55 Urine Color Colorless (Yellow) Urine Clarity Clear (Clear) Urine pH 6.0 (5.0-9.0) Urine Specific [place] 1.012 (1.001-1.035) Urine Protein 2+ (Negative) H Urine Ketones Negative (Negative) Urine Blood 1+ /uL (Negative) H Urine Nitrite Negative (Negative) Urine Bilirubin Negative (Negative) Urine Urobilinogen Normal mg/dL (Negative) Urine Leukocyte Esterase Negative /uL (Negative) Urine RBC 2 /hpf (0 - 4) Urine Microscopic WBC 3 /HPF (0-5) Urine Squamous Epithelial Cells Few /hpf (<5) Urine Bacteria Few /hpf (None Seen) H Urine Osmolality 346 mOsm/kg Urine Glucose Trace mg/dL (Normal) Assessment/Plan Assessment/Plan NSTEMI Hypertensive emergency Acute renal failure on CKD unknown baseline creat 2.3>2.5 Plan Continue nifedipine 60 mg daily, continue Coreg 12.5 mg b.i.d. Continue atorvastatin 40 mg Nephrology following Echo wnl no further cardiac workup Plan Dc in next 1-2 days if creatinine better Plan discussed with: Patient Date of Service: May 25, 2025 Billing Provider: OLIVE CHANG MD Common Visit Codes: [id number] INP/OBS CARE(HIGH) OLIVE CHANG MD May 25, 2025 20:01
[2025-05-25 22:26] LABS: INR 1.04 (0.9-1.15); Partial Thromboplastin Time 48.8 SEC (24.5-34.5); Prothrombin Time 11.0 sec (9.3-11.8)
[2025-05-25] MEDS: hydrALAZINE HCL 20 MG/ML VL IV PRN (22:31)
[2025-05-26] VITALS (7 sets, daily range): BP systolic 116–155; BP diastolic 59–79; PULSE 69–93; RESP 16–20; TEMP 97.3–98.6; O2SAT 96–97
[2025-05-26] MEDS: ACETAMINOPHEN 325 MG TAB PO PRN (02:11)
[2025-05-26 06:45] LABS: Hematocrit 40.9 % (36.0-46.0); Hemoglobin 13.9 g/dL (12.2-16.2); Mean Corpuscular Hemoglobin 30.0 pg (28.0-32.0); Mean Corpuscular Volume 88.2 fL (80.0-100.0); Nucleated Red Blood Cells % 0.1 %
[2025-05-26 09:17] LABS: INR 1.08 (0.9-1.15); Prothrombin Time 11.4 sec (9.3-11.8)
[2025-05-26 09:19] LABS: Potassium 4.1 mmol/L (3.5-5.1); Sodium 142 mmol/L (136-145)
[2025-05-26 09:20] LABS: Anion Gap 9 (5-15); Calcium 10.0 mg/dL (8.7-10.4); Carbon Dioxide 24 mmol/L (20-31)
[2025-05-26 09:23] LABS: Partial Thromboplastin Time 79.1 SEC (24.5-34.5)
[2025-05-26 09:25] LABS: BUN/Creatinine Ratio 19.3 (10.0-20.0)
[2025-05-26 09:27] LABS: Blood Urea Nitrogen 47 mg/dL (9-23); Chloride 109 mmol/L (98-107); Glucose 112 mg/dL (74-106)
[2025-05-26] MEDS: HEPARIN DRIP/D5W 100UNITS/ML 250 ML IV SCH (09:47)
--- NOTE | 2025-05-26 10:04 | CONS ---
Pharmacy Clinical Information: HEPARIN DRIP PER PHARMACY SPOKE TO ALE MENDEZ REGARDING HEPARIN DOSE CHANGE CURRENT DOSE = 1000 UNITS/HR CURRENT aPTT: 79.1 ON 05/26/2025 AT 08:40 BOLUS: NO DECREASE HEPARIN DRIP RATE (NEW DOSE): 800 UNITS/HR DATE AND TIME NEW RATE STARTED: 09:47 ON 05/26/2025 NEXT aPTT: 05/26/2025 AT 1600 ALE MENDEZ READ BACK NEW RATE: 800 UNITS/HR RYANNE Goins May 26, 2025 10:04
[2025-05-26] MEDS: ERGOCALCIFEROL 50,000 UNIT(1.25MG) CAP PO SCH (12:15)
--- NOTE | 2025-05-26 12:29 | DVHPN2 ---
Progress Note Date Seen: May 26, 2025 Resident Creating Document: TG CARVER RESIDENT Medical Necessity Reason Pt with a Central, PICC or Fol: No Subjective Review of Systems This is a 65-year-old female with past medical history of hypertension, gout who presented to the ER with a chief complaint of generalized weakness, shortness of breaths and headache for a day. Patient is A&O x3 and reports that her blood pressure was high and she was feeling generalized fatigue, malaise, shortness of breaths on exertion and on rest and severe headache for which she decided to come into the ER. Patient does not take any medications at home. She follows [facility] and takes chlorine dioxide DMSO 1-2 times daily for blood pressure control. She eats diet rich in red meat including rib eyes, but denies eating any vegetables especially with oxalates. Associated symptoms include chills, nausea, diarrhea for 1 day, 3 times, nonbloody, reports increasing urine output, but denies cough, chest pain, fever. Patient stays that she does not believe in Western medicine in his done research and does not want any statin/Coreg/or any vaccines. Says that last blood draw was more than 2 years back. 05/24 Patient seen and examined in the ER. Blood pressure is 150/80 mmHg. Started nifedipine 60 mg daily. 05/25-patient seen and examined, no acute complaint. cardiology started Coreg b.i.d. and atorvastatin. Heparin drip was discontinued. Blood pressure is adequately controlled. 05/26-patient seen and examined, tolerating soft diet, no acute distress. Blood pressure controlled. Objective vital signs Vital Sign Date Time Temp Pulse Resp B/P (MAP) Pulse Ox O2 Delivery O2 Flow Rate FiO2 05/26/25 09:43 134/73 05/26/25 09:42 72 05/26/25 08:55 98.0 18 96 98.0 05/26/25 08:00 Room Air* 0 21 Total Intake and Output 05/25/25 05/25/25 05/26/25 15:00 23:00 07:00 Intake Total 1460 ml 250 ml Output Total 800 ml Balance 660 ml 250 ml medications Current Medications Medications Dose Ordered Sig/Mariella Route Start Time Stop Time Status Last Admin Dose Admin Hydralazine HCl 10 mg Q6HP PRN IV 05/24/25 01:00 05/25/25 22:31 10 MG Aspirin 162 mg DAILY PO 05/24/25 10:00 05/26/25 09:50 162 MG Ondansetron HCl 4 mg Q4HP PRN IV 05/24/25 01:00 Nitroglycerin 0.4 mg Q5MINP PRN SL 05/24/25 01:00 Morphine Sulfate 2 mg Q30M PRN IV 05/24/25 01:00 Acetaminophen 650 mg Q6HP PRN PO 05/24/25 12:30 05/26/25 02:11 650 MG Nifedipine 60 mg DAILY PO 05/25/25 10:00 05/26/25 09:43 60 MG Atorvastatin Calcium 40 mg HS PO 05/24/25 19:45 05/25/25 21:28 40 MG Carvedilol 12.5 mg Q12HR PO 05/25/25 10:00 05/26/25 09:42 12.5 MG Heparin Sodium/ Dextrose 250 ml @ 8 mls/hr Q24H IV 05/26/25 09:45 05/26/25 09:47 8 MLS/HR Ergocalciferol 50,000 unit Q7D PO 05/26/25 12:15 UNV Examination Patient lying in bed, in no acute distress, reports chills General: Well-built, afebrile, palor, mucosae are moist Cardiovascular: Regular S1 and S2. No murmurs, gallops or rubs. No JVD elevation. No pedal edema Respiratory: Normal B/L air entry on room air. Clear lung sounds on auscultation Abdomen: Soft, nontender, nondistended, normoactive bowel sounds, no rebound tenderness, no organomegaly, no masses Genitourinary: Deferred MSK/skin: Mobilizes 4 limbs. Skin is dry and warm Neurological: No motor, no sensitive deficits, normal speech. Pupils are isocoric and reactive. Psych/Mental Status: A/Ox3 laboratory and microbiology Laboratory Tests 05/26/25 06:09 Test 05/26/25 06:09 Range/Units Serum Glucose 112 H 74-106 mg/dL Labs and/or images reviewed: Labs reviewed by me, Image(s) reviewed by me Problem List/Assessment/Plan Problem List/Assessment/Plan Acute kidney injury secondary to hypertensive nephropathy likely superimposed on CKD Hypertensive nephrosclerosis Hypertensive crisis NSTEMI Dyslipidemia Prior bilateral lacunar infarcts History of gout Medication noncompliance Vitamin-D deficiency Secondary hyperparathyroidism CT scan head shows chronic bilateral lacunar infarct Chest x-ray unremarkable Renal ultrasound showed Echogenic bilateral kidneys suggestive of chronic medical renal disease. Suggestion of possible mild right hydronephrosis. Plan: BUN/creatinine is stable. Appears like baseline. Continue nifedipine 60 mg daily, continue Coreg 12.5 mg b.i.d. Continue atorvastatin 40 mg Discontinued labetalol IV drip Patient is on heparin drip Echocardiogram unremarkable Patient counseled regarding the need for outpatient follow up-per patient, she will see her integrated medicine doctor next week Patient counseled extensively regarding the need of antihypertensive medications, side effects, risks and benefits Vitamin-D supplemented We will continue to follow up Plan discussed with patient, nurse in which all questions have been answered Case discussed with Dr. Romero Plan discussed with: Patient My Orders My Orders Orders - TG CARVER Procedure Category Date Status Time Ergocalciferol [facility] 05/26/25 Logged (Vitamin D 50,000 12:15 TG CARVER May 26, 2025 12:29
[2025-05-26] MEDS ORDERED: CARV-216 PO (15:15)
[2025-05-26] MEDS ORDERED: ATOR20TA50 PO (15:15)
[2025-05-26] MEDS ORDERED: NIFE1TAB31 PO (15:15)
[2025-05-26] MEDS ORDERED: ASPI-325 PO (15:15)
[2025-05-26 16:35] LABS: INR 1.08 (0.9-1.15); Partial Thromboplastin Time 53.7 SEC (24.5-34.5); Prothrombin Time 11.4 sec (9.3-11.8)
== END 2025-05-26 17:13 | disposition home or self-care (01) | DRG 281 ==
LOC: ER 21:40 → EDBD 21:40 → OVERFLOW 05-24 00:48 → TELE-WESTW 05-24 16:32
PROVIDERS: ADMIT Hospitalist; ATTEND Hospitalist
DX: I21.4 Non-ST elevation (NSTEMI) myocardial infarction (principal); I16.1 Hypertensive emergency; N25.81 Secondary hyperparathyroidism of renal origin; N17.9 Acute kidney failure, unspecified; N13.30 Unspecified hydronephrosis; I12.9 Hypertensive chronic kidney disease with stage 1 through stage 4 chronic kidney disease, or unspecified chronic kidney disease; N18.9 Chronic kidney disease, unspecified; E78.5 Hyperlipidemia, unspecified; E55.9 Vitamin D deficiency, unspecified; Z88.2 Allergy status to sulfonamides; Z91.148 Patient's other noncompliance with medication regimen for other reason; Z81.1 Family history of alcohol abuse and dependence; Z83.3 Family history of diabetes mellitus; Z83.511 Family history of glaucoma
CPT/HCPCS: 36415; 70450; 71045; 76775; 80048; 80053; 80061; 81001; 82306; 82607; 83036; 83735; 83880; 83935; 83970; 84443; 84484; 85025; 85610; 85730; 93005; 93306; 99291; G0378; J2405; Q0162

== ENCOUNTER 2025-05-27 00:46 | Emergency (ER) | payer OTHER ==
[~2025-05-27] VITALS: Ht 157.5 cm; Wt 145.0 kg
[~2025-05-27 00:46] MED LIST: ASPI-325 PO; ATOR20TA50 PO; CARV-216 PO; NIFE1TAB31 PO
--- NOTE | 2025-05-27 01:15 | ED.PDOC ---
HPI Comments 65 year old female presents to the ED via EMS with a chief complaint of hypertension onset last night. Per EMS, patient was discharged from [facility] yesterday, (05/26/25), was discharged with prescribed medication. Patient states she took medication as prescribed, BP was elevated, was experiencing dizziness nausea. Upon EMS arrival, BP was 188/96. PMHx HTN, Gout. Denies vomiting, diarrhea, headache, chest pain, shortness of breath, fevers. No other symptoms or modifying factors present at this time. Chief Complaint: High Blood Pressure Time Seen by MD: 01:05 Reviewed Notes: Medications, Allergies Allergies: Uncoded Allergies: sulfa (Allergy, Intermediate, 05/24/25) Home Meds Active Scripts Nifedipine (Nifedipine Er) 30 Mg Tab, 60 MG PO DAILY for 90 Days, #180 TAB Prov:OLIVE CHANG MD 05/26/25 Carvedilol (COREG) 12.5 Mg Tab, 12.5 MG PO Q12HR for 90 Days, #180 TAB Prov:OLIVE CHANG MD 05/26/25 Atorvastatin Calcium (ATORVASTATIN CALCIUM) 20 Mg Tab, 40 MG PO HS for 90 Days, #180 TAB Prov:OLIVE CHANG MD 05/26/25 Aspirin (Aspirin Low Dose) 81 Mg Tab, 162 MG PO DAILY for 90 Days, #180 TAB Prov:OLIVE CHANG MD 05/26/25 Information Source: Patient, Emergency Med Personnel Mode of Arrival: EMS Severity: Moderate Timing: Hours Duration: Since onset Prehospital treatment: None Cardiac Risk Factors: HTN PE Risk Factors: None History of: None Past Medical History PAST MEDICAL HISTORY: Gout, HTN Surgical History: Denies all surgeries 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 PUMP 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 History Family History Family History: Reviewed,noncontributory to illness, No family hx of Cancer, No family hx of DM, No family hx of Heart esequiel, No family hx of HTN, No family hx ofKidney esequiel, No family hx of Liver esequiel, No family hx of Lung esequiel, No family hx of Stroke Social History Smoker: Non-Smoker Alcohol: Denies ETOH Use Drugs: Denies Drug Use Lives In: Home Constitutional: denies: chills, diaphoresis, fatigue, fever, malaise, sweats, weakness, others EENTM: denies: blurred vision, double vision, ear bleeding, ear discharge, ear drainage, ear pain, ear ringing, eye pain, eye redness, hearing loss, mouth pain, mouth swelling, nasal discharge, nose bleeding, nose congestion, nose pain, photophobia, tearing, throat pain, throat swelling, voice changes, others Respiratory: denies: cough, hemoptysis, orthopnea, SOB at rest, shortness of breath, SOB with excertion, stridor, wheezing, others Cardiovascular: reports: others (hypertension); denies: chest pain, dizzy s pells, diaphoresis, Dyspnea on exertion, edema, irregular heart beat, left arm pain, lightheadedness, palpitations, PND, syncope Gastrointestinal: reports: nausea; denies: abdomen distended, abdominal pain, blood streaked bowels, constipated, diarrhea, dysphagia, difficulty swallowing, hematemesis, melena, poor appetite, poor fluid intake, rectal bleeding, rectal pain, vomiting, others Genitourinary: denies: abnormal vagina bleeding, burning, dyspareunia, dysuria, flank pain, frequency, hematuria, incontinence, pain, , vagina discharge, urgency, others Neurological: reports: dizziness; denies: fainting, headache, left sided numbness, left sided weakness, numbness, paresthesia, pre-existing deficit, right sided numbness, right sided weakness, seizure, speech problems, tingling, tremors, weakness, others Musculoskeletal: denies: back pain, gout, joint pain, joint swelling, muscle pain, muscle stiffness, neck pain, others Integumetry: denies: bruises, change in color, change in hair/nails, dryness, laceration, lesions, lumps, rash, wounds, others Allergic/Immunocompromised: denies: Difficulty Healing, Frequent Infections, Hives, Itching, others Hematologic/Lymphatic: denies: anemia, blood clots, easy bleeding, easy bruising, swollen glands, others Endocrine: denies: excessive hunger, excessive sweating, excessive thirst, excessive urination, flushing, intolerance to cold, intolerance to heat, unexplained weight gain, unexplained weight loss, others Psychiatric: denies: anxiety, bipolar disorder, depression, hopeless, panic disorder, schizophrenia, sleepless, suicidal, others All Other Systems: Reviewed and Negative Physical Exam General Appearance: No Apparent Distress, Normal HEENT: Normal ENT Inspection, Pharynx Normal, TMs Normal Neck: Full Range of Motion, Non-Tender, Normal, Normal Inspection Respiratory: Chest Non-Tender, Lungs Clear, No Accessory Muscle Use, No Respiratory Distress, Normal Breath Sounds Cardiovascular: No Edema, No JVD, No Murmur, No Gallop, Normal Peripheral Pulses, Regular Rate/Rhythm Breast Exam: Deferred Gastrointestinal: No Organomegaly, Non Tender, No Pulsatile Mass, Normal Bowel Sounds, Soft Genitalia: Deferred Pelvic: Deferred Rectal: Deferred Extremities: No calf tenderness, Normal capillary refill, Normal inspection, Normal range of motion, Non-tender, No pedal edema Musculoskeletal : Apperance: Normal Neurologic: Alert, cake decorator II-XII nml as Tested, No Motor Deficits, Normal Affect, Normal Mood, No Sensory Deficits Cerebellar Function: Normal Reflexes: Normal Skin: Dry, Normal Color, Warm Lymphatic: No Adenopathy Was a procedure done? Was a procedure done?: No CP Differential Dx Differential Diagnosis: MAT, NV, PAC's Differential Diagnosis: HTN Essential, HTN Accelerated, HTN Encephalopathy Differential Diagnosis: Gastritis, Myocardial Infarction X-Ray, Labs, Meds, VS Vital Signs Date Time Temp Pulse Resp B/P (MAP) Pulse Ox O2 Delivery O2 Flow Rate FiO2 05/27/25 02:52 97.4 73 10 139/66 (90) 97 97.4 05/27/25 02:52 Room Air* 0 21 05/27/25 00:46 97.5 70 20 188/96 (126) 95 97.5 Lab Test 05/27/25 02:13 05/27/25 01:15 05/27/25 01:10 Range/Units Troponin I High Sensitivity 461 *H 476 *H </=34 ng/L Urine Color Colorless Yellow Urine Clarity Clear Clear Urine pH 6.5 5.0-9.0 Urine Specific [place] 1.013 1.001-1.035 Urine Protein 2+ H Negative Urine Ketones Negative Negative Urine Blood Trace H Negative /uL Urine Nitrite Negative Negative Urine Bilirubin Negative Negative Urine Urobilinogen Normal Negative mg/dL Urine Leukocyte Esterase Negative Negative /uL Urine RBC 1 0 - 4 /hpf Urine Microscopic WBC 5 0-5 /HPF Urine Squamous Epithelial Cells Few <5 /hpf Urine Bacteria None seen None Seen /hpf Urine Glucose Normal Normal mg/dL White Blood Count 6.7 4.4-10.8 10^3/uL Red Blood Count 4.94 4.0-5.20 10^6/uL Hemoglobin 14.8 12.2-16.2 g/dL Hematocrit 44.2 36.0-46.0 % Mean Corpuscular Volume 89.4 80.0-100.0 fL Mean Corpuscular Hemoglobin 29.9 28.0-32.0 pg Mean Corpuscular Hemoglobin Concent 33.4 32.0-36.0 g/dL Red Cell Distribution Width 15.0 H 11.8-14.3 % Platelet Count 300 140-450 10^3/uL Mean Platelet Volume 8.8 6.9-10.8 fL Neutrophils (%) (Auto) 62.6 37.0-80.0 % Lymphocytes (%) (Auto) 29.3 10.0-50.0 % Monocytes (%) (Auto) 6.2 0.0-12.0 % Eosinophils (%) (Auto) 0.6 0.0-7.0 % Basophils (%) (Auto) 1.3 0.0-2.0 % Neutrophils # (Auto) 4.2 1.6-8.6 10 ^3/uL Lymphocytes # (Auto) 2.0 0.4-5.4 10 ^3/uL Monocytes # (Auto) 0.4 0-1.3 10 ^3/uL Eosinophils # (Auto) 0 0-0.8 10 ^3/uL Basophils # (Auto) 0.1 0-0.2 10 ^3/uL Nucleated Red Blood Cells 0.0 % Sodium Level 141 136-145 mmol/L Potassium Level 5.1 3.5-5.1 mmol/L Chloride Level 108 H 98-107 mmol/L Carbon Dioxide Level 23 20-31 mmol/L Anion Gap 10 5-15 Blood Urea Nitrogen 47 H 9-23 mg/dL Creatinine 2.16 H 0.550-1.02 mg/dL Glomerular Filtration Rate Calc 25 >90 mL/min BUN/Creatinine Ratio 21.8 H 10.0-20.0 Serum Glucose 101 74-106 mg/dL Calcium Level 9.7 8.7-10.4 mg/dL Time of 1ST Reevaluation: 01:35 Reevaluation 1ST: Unchanged Patient Education/Counseling: Diagnosis, Treatment, Prognosis Family Education/Counseling: No Family Present SEPSIS Sepsis Screen Physician Orders Chest Portable (05/27/25 00:59) Electrocardigram (05/27/25 00:59) Electrocardigram (05/27/25 01:59) Vital Signs Date Time Temp Pulse Resp B/P (MAP) Pulse Ox O2 Delivery O2 Flow Rate FiO2 05/27/25 02:52 97.4 73 10 139/66 (90) 97 97.4 05/27/25 02:52 Room Air* 0 21 05/27/25 00:46 97.5 70 20 188/96 (126) 95 97.5 Laboratory Tests Test 05/27/25 01:10 White Blood Count 6.7 10^3/uL (4.4-10.8) Departure 1 Departure Time of Disposition: 05:05 (Patient presented with hypertension and symptoms concerning for hypertensive emergency. Patient is receiving iv blood pressure medications requiring intensive monitoring. Data: 1. I ordered and reviewed the result of at least 3 labs including a CBC, BMP, and Urinalysis. 2. I independently interpreted the following tests: CT Brain: Which appears benign. EKG which is Normal Sinus RhythmRisk:This patient has a high risk of morbidity due to further diagnostic testing or treatment and may suffer from an acute cardiac disorder. Workup reveals hypertensive emergency and patient should be admitted for further workup. and possible expert consultation. ) Impression: Primary Impression: Hypertensive urgency Additional Impression: Elevated troponin Disposition: ADMITTED INPATIENT Admit to: Med Surg Condition: Serious Critical Care Note Critical Care Time?: Yes Critical care comment: Hypertensive urgency Authorized and Performed by: Ambrose Donnelly MD Total critical care time: Approximately 39 minutes Due to a high probability of clinically significant, life threatening deterio ration, the patient required my highest level of preparedness to intervene emergently and I personally spent this critical care time directly and personally managing the patient. This critical care time included obtaining a history; examining the patient; pulse oximetry; ordering and review of studies; arranging urgent treatment with development of a management plan; evaluation of patient's response to treatment; frequent reassessment; and, discussions with other providers. This critical care time was performed to assess and manage the high probability of imminent, life-threatening deterioration that could result in multi-organ failure. It was exclusive of separately billable procedures and treating other patients and teaching time. Please see my other sections and the rest of the note for further information on patient assessment and treatment. Stability Stability form required: No Heart Score Heart Score: Heart Score Response (Comments) Value History Moderate Suspicious 1 EKG Repolarization Disturb 1 Age 45-64 1 Risk Factors >3 or Hx ASHD 2 Troponin >3 x's Normal limit 2 Total 7 I personally scribed for AMBROSE DONNELLY MD ([email or web address]) on 05/27/25 at 01:15. Electronically submitted by Elva Richard ([email or web address]). AMBROSE DONNELLY MD May 27, 2025 01:15
[2025-05-27 01:25] LABS: Hematocrit 44.2 % (36.0-46.0); Hemoglobin 14.8 g/dL (12.2-16.2); Mean Corpuscular Hemoglobin 29.9 pg (28.0-32.0); Mean Corpuscular Volume 89.4 fL (80.0-100.0); Nucleated Red Blood Cells % 0.0 %
[2025-05-27 01:34] LABS: Potassium 5.1 mmol/L (3.5-5.1); Sodium 141 mmol/L (136-145)
[2025-05-27 01:35] LABS: Anion Gap 10 (5-15); Calcium 9.7 mg/dL (8.7-10.4); Carbon Dioxide 23 mmol/L (20-31)
[2025-05-27 01:37] LABS: Chloride 108 mmol/L (98-107)
[2025-05-27 01:40] LABS: BUN/Creatinine Ratio 21.8 (10.0-20.0); Glucose 101 mg/dL (74-106)
[2025-05-27 01:43] LABS: Blood Urea Nitrogen 47 mg/dL (9-23)
[2025-05-27 02:03] LABS: Urine Protein, UAD 2+ (Negative)
--- NOTE | 2025-05-27 02:39 | DVH ---
CHEST RADIOGRAPH Indication: htn Technique: Single frontal view of the chest was obtained Comparison: XY CHEST PORTABLE on DOS: 05/23/25 IMPRESSION: The heart is prominent size. There is [id number] pulmonary vascular congestion. No focal airs pace opacity, sizeable effusion, or pneumothorax.
[2025-05-27 02:52] VITALS: BP 139/66; RESP 10; TEMP 97.4; O2SAT 97
[2025-05-27 03:14] VITALS: PULSE 71
--- NOTE | 2025-05-31 10:55 | ECG ---
[facility] Test Date: 2025-05-27 Test Time: 03:14:07 Pat Name: ERIKA ROLLINS Department: ER Room: Gender: F Insulation Installer: NIURKA : 1960 Requested By: AMBROSE MANZANARES Order Number: [id number] Reading MD: Measurements Intervals Jessie Rate: 71 P: 54 MN: 178 QRS: 4 QRSD: 120 T: 6 QT: 439 QTc: 478 Interpretive Statements Sinus rhythm Probable left atrial enlargement Left ventricular hypertrophy Please click the below link to view image of tracing.
== END 2025-05-27 03:45 | disposition left against medical advice (07) ==
LOC: ER 00:46 → EDBD 00:46 → ER 03:45
DX: I16.0 Hypertensive urgency (principal); R79.89 Other specified abnormal findings of blood chemistry; I10 Essential (primary) hypertension; Z79.82 Long term (current) use of aspirin; Z79.899 Other long term (current) drug therapy; Z88.2 Allergy status to sulfonamides
CPT/HCPCS: 36415; 71045; 80048; 81001; 84484; 85025; 93005